=== PATIENT | female | born 1940 | race Hispanic/Latino ===

== ENCOUNTER 2020-01-10 11:05 | Emergency (ER) | payer MEDICARE ==
[~2020-01-10] VITALS: Ht 154.9 cm; Wt 82.6 kg
--- NOTE | 2020-01-10 11:57 | Emergency Department Note ---
History of Present Illnes History of Present Illness Chief Complaint: Extremity Trauma/Pain History of Present Illness This is a 79 year old female arrives to the ED with complaints of right hip pain denies any injuries or falls states pain is worse when attempting to ambulate. . Chief Complaint Comment Patient in from home with complaints of right hip/pelvis pain that started this morning about 0500 when walking out of her rest room. Patient denies falling, twisting or obvious trauma. Patient states that when sitting she doesn't have any pain at all but if she tries to walk or stand the pain gets severe. No acute distress noted. Historian: Patient Arrival Mode: Car Timing of current episode: intermittent Progression: unchanged Chronicity: new Context: Denies trauma/injury Relieving factors: immobilization Exacerbating factors: movement Associated symptoms: Reports denies other symptoms Past Medical/Family History Physician Review I have reviewed the patient's past medical and family history. Any updates have been documented here. Past Medical History Recent Fever: No Clinical Suspicion of Infectio: No New/Unexplained Change in Ment: No Past Medical History: Hypertension, Diabetes, Hyperlipedemia Other Medical History: neuropathy Past Surgical History: Hysterectomy, Cataract Removal Review of Systems Review of Systems Constitutional: Reports no symptoms EENTM: Reports no symptoms Cardiovascular: Reports no symptoms Respiratory: Reports no symptoms Gastrointestinal: Reports no symptoms Genitourinary: Reports no symptoms Musculoskeletal: Reports as per HPI, Reports back pain Integumentary: Reports no symptoms Neurological: Reports no symptoms Psychological: Reports no symptoms Endocrine: Reports no symptoms Hematological/Lymphatic: Reports no symptoms Physical Exam Related Data Allergies: Coded Allergies: No Known Allergies (Unverified , 09/18/10) Triage Vital Signs Vital Signs Date Time Temp Pulse Resp B/P (MAP) Pulse Ox O2 Delivery O2 Flow Rate FiO2 01/10/20 11:27 97.6 66 17 145/82 100 Room Air Vital signs reviewed: Yes Physical Exam CONSTITUTIONAL Constitutional: Present well-developed, Present well-nourished HENT HENT: Present normocephalic, Present atraumatic, Present oropharynx clear/ moist, Present nose normal HENT L/R: Present left ext ear normal, Present right ext ear normal EYES Eyes: Reports PERRL, Reports conjunctivae normal NECK Neck: Present ROM normal PULMONARY Pulmonary: Present effort normal, Present breath sounds normal CARDIOVASCULAR Cardiovascular: Present regular rhythm, Present heart sounds normal, Present capillary refill normal, Present normal rate GASTROINTESTINAL Abdominal: Present soft, Present other (tenderness noted over right inguinal area, no palpable hernias present) GENITOURINARY Genitourinary: Present exam deferred SKIN Skin: Present warm, Present dry MUSCULOSKELETAL Musculoskeletal: Present ROM normal NEUROLOGICAL Neurological: Present alert, Present oriented x 3, Present no gross motor or sensory deficits PSYCHOLOGICAL Psychological: Present mood/affect normal, Present judgement normal Results Laboratory Lab results reviewed: Yes Assessment & Plan Medical Decision Making MDM 79-year-old well-appearing female arrives the ED with atraumatic right hip and right lower quadrant abdominal pain. Initial imaging unremarkable, however, time of discharge patient then began to complain of worsening pain. Patient's tenderness was predominantly noted over right inguinal area on his concerns of possible hernia but limited exam secondary to body habitus. Lab work and CT imaging ordered and Cat given to Dr. Wong to follow-up and ultimately dispo patient. Assessment & Plan Final Impression: (1) Abdominal pain Last Vital Signs Date Time Temp Pulse Resp B/P (MAP) Pulse Ox O2 Delivery O2 Flow Rate FiO2 01/10/20 11:27 97.6 66 17 145/82 100 Room Air Home Meds Active Scripts Tramadol Hcl (ULTRAM) 50 Mg Tablet, 50 MG PO Q6HR PRN for Mild Pain (1-3) or Fever>100.8, #12 TAB Prov:CANDI PHILLIPS DO 01/10/20 CANDI PHILLIPS DO Jan 10, 2020 11:56
--- NOTE | 2020-01-10 12:37 | Diagnostic Imaging Report ---
Bilateral hips, 2 views. History: Acute onset right hip pain. Findings: The soft tissues are normal. Bone mineralization is normal. There is no evidence of fracture or dislocation. There are no lytic or sclerotic lesions. The joint spaces are within normal limits. IMPRESSION: Normal bilateral hips. Signed by: Layo Steele on 01/10/2020 12:34 PM
[2020-01-10] MEDS ORDERED: ULTRAM50 MG PO (15:32)
[2020-01-10 15:49] VITALS: BP 135/72
[2020-01-10] MEDS ORDERED: DIAZEPAM 5 MG TAB PO SCH (16:00)
[2020-01-10] MEDS ORDERED: HYDROCODONE/APAP 10MG-325MG TAB PO ONE (16:00)
[2020-01-10] MEDS ORDERED: ONDANSETRON HCL INJ 2MG/ML 2ML 2 MG/ML VIAL IV STA (16:09)
[2020-01-10] MEDS ORDERED: MORPHINE SULFATE INJ 4 MG/ML INJ 1ML IV PRN (16:15)
[2020-01-10 16:47] LABS: BASOPHILS % 0.3 % (0.0-1.0); EOSINOPHILS # (AUTO) 0.1 (0.0-0.4); EOSINOPHILS % 0.8 % (0.0-6.0); HEMATOCRIT 38.7 % (34.2-44.1); HEMOGLOBIN 12.3 g/dL (12.0-16.0); LYMPHOCYTES # (AUTO) 1.3 (1.0-3.2); LYMPHOCYTES % 16.7 % (18.0-39.1); MEAN CORPUSCULAR HEMOGLOBIN 28.2 pg (28-32); MEAN CORPUSCULAR HGB CONC 31.8 g/dL (31-35); MEAN CORPUSCULAR VOLUME 88.8 fL (81-99); MONOCYTES # (AUTO) 0.5 (0.2-0.8); MONOCYTES % 6.3 % (4.4-11.3); NEUTROPHILS # (AUTO) 5.8 (2.1-6.9); NEUTROPHILS % 75.6 % (38.7-80.0); PLATELET COUNT 267 x10e3/uL (140-360); RED BLOOD COUNT 4.36 x10e6/uL (3.6-5.1); RED CELL DISTRIBUTION WIDTH 13.7 % (11.7-14.4)
[2020-01-10 17:03] LABS: ALBUMIN 4.1 g/dL (3.5-5.0); ANION GAP 16.3 mmol/L (8-16); CALCIUM 10.2 mg/dL (8.4-10.2); CREATININE, SERUM 1.16 mg/dL (0.57-1.11); POTASSIUM 4.3 mmol/L (3.5-5.1)
[2020-01-10] MEDS ORDERED: SODIUM CHLORIDE 0.9% 1000ML 1,000 ML IV SCH (17:15)
[2020-01-10] MEDS ORDERED: SODIUM CHLORIDE 0.9% 1000ML 1,000 ML ONE (17:22)
[2020-01-10] MEDS ORDERED: IOPAMIDOL 370 MG/ML 200 ML INFUS..BTL INJ ONE (17:48)
[2020-01-10] MEDS ORDERED: SODIUM CHLORIDE 0.9% 50ML 50 ML ONE (17:48)
--- NOTE | 2020-01-10 18:18 | Diagnostic Imaging Report ---
EXAM: CT Abdomen and Pelvis WITH contrast INDICATION: Abdominal pain. Pain in the right hip and pelvis. COMPARISON: None. TECHNIQUE: Abdomen and pelvis were scanned utilizing a multidetector helical scanner from the lung base to the pubic symphysis after administration of IV contrast. Coronal and sagittal reformations were obtained. Routine protocol was performed. Scan was performed when during portal venous phase. IV CONTRAST: 100 mL of Isovue 370 ORAL CONTRAST: None COMPLICATIONS: None RADIATION DOSE: Total DLP: 755 mGy*cm Estimated effective dose: (DLP x 0.015 x size factor) mSv CTDIvol has been reviewed. It is below the limits set by the Radiation Protocol Committee (RPC). Dose modulation, iterative reconstruction, and/or weight based adjustment of the mA/kV was utilized to reduce the radiation dose to as low as reasonably achievable. FINDINGS: LINES and TUBES: None. LOWER THORAX: Unremarkable HEPATOBILIARY: No focal hepatic lesions. No biliary ductal dilation. GALLBLADDER: No radio-opaque stones or sludge. No wall thickening. SPLEEN: No splenomegaly. PANCREAS: No focal masses or ductal dilatation. ADRENALS: No adrenal nodules KIDNEYS/URETERS: Kidneys enhance symmetrically. No hydronephrosis. Too small to characterize hypodensities in the kidneys most likely due to small cysts. No stones. GI TRACT: No abnormal distention, wall thickening, or evidence of bowel obstruction. Appendix is normal. Scattered diverticulosis without evidence of diverticulitis. PELVIC ORGANS/BLADDER: Unremarkable. LYMPH NODES: No lymphadenopathy. VESSELS: Scattered vascular calcification. PERITONEUM / RETROPERITONEUM: No free air or fluid. BONES: Scattered degenerative change. SOFT TISSUES: Small fat-containing periumbilical hernia. IMPRESSION: 1. Scattered diverticulosis without evidence of diverticulitis. 2. Small fat-containing periumbilical hernia. Signed by: Dr. Ravin Bryan M.D. on 01/10/2020 6:15 PM
--- NOTE | 2020-01-10 19:00 | NUR ---
report given to Fernando Fraser RN
== END 2020-01-10 19:52 | disposition home or self-care (01) ==
LOC: ER 12:17
DX: M25.551 Pain in right hip (principal); R10.31 Right lower quadrant pain; I10 Essential (primary) hypertension; E11.65 Type 2 diabetes mellitus with hyperglycemia; E78.5 Hyperlipidemia, unspecified
CPT/HCPCS: 36415; 73522; 74177; 80053; 85025; 99284; J7030; Q9967

== ENCOUNTER 2021-06-02 11:16 | Emergency (ER) | payer MEDICARE, OTHER ==
[~2021-06-02] VITALS: Ht 154.9 cm; Wt 82.6 kg
[~2021-06-02 11:16] MED LIST: ULTRAM50 MG PO
[2021-06-02] MEDS ORDERED: LIDOCAINE1 EAC1 TD (13:51)
== END 2021-06-02 14:07 | disposition home or self-care (01) ==
LOC: ER 12:38
DX: R51.9 Headache, unspecified (principal); M54.2 Cervicalgia; W01.0XXA Fall on same level from slipping, tripping and stumbling without subsequent striking against object, initial encounter; Y93.01 Activity, walking, marching and hiking; Y92.89 Other specified places as the place of occurrence of the external cause; I10 Essential (primary) hypertension; E11.40 Type 2 diabetes mellitus with diabetic neuropathy, unspecified; E78.5 Hyperlipidemia, unspecified
CPT/HCPCS: 70450; 72125; 99284

== ENCOUNTER 2022-09-13 11:56 | Inpatient (IN) | payer MEDICARE ==
[~2022-09-13] VITALS: Ht 154.9 cm; Wt 93.0 kg
[~2022-09-13 11:56] MED LIST changes: +LIDOCAINE1 EAC1 TD
[2022-09-13 12:59] LABS: BASOPHILS % 0.3 % (0.0-1.0); EOSINOPHILS % 0.4 % (0.0-6.0); HEMOGLOBIN 12.1 g/dL (12.0-16.0); LYMPHOCYTES # (AUTO) 1.5 (1.0-3.2); LYMPHOCYTES % 20.7 % (18.0-39.1); MEAN CORPUSCULAR HEMOGLOBIN 27.2 pg (28-32); MEAN CORPUSCULAR VOLUME 87.6 fL (81-99); MONOCYTES # (AUTO) 0.6 (0.2-0.8); MONOCYTES % 7.9 % (4.4-11.3); NEUTROPHILS # (AUTO) 5.1 (2.1-6.9); NEUTROPHILS % 70.6 % (38.7-80.0); PLATELET COUNT 296 x10e3/uL (140-360); RED BLOOD COUNT 4.45 x10e6/uL (3.6-5.1); RED CELL DISTRIBUTION WIDTH 13.1 % (11.7-14.4)
[2022-09-13 13:10] LABS: ALANINE AMINOTRANSFERASE 11 IU/L (0-55); ALKALINE PHOSPHATASE 87 IU/L (40-150); ANION GAP 11.9 mmol/L (8-16); BLOOD UREA NITROGEN 27 mg/dL (7-26); BUN/CREATININE RATIO 19 (6-25); CALCIUM 9.1 mg/dL (8.4-10.2); CARBON DIOXIDE 30 mmol/L (22-29); CHLORIDE 96 mmol/L (98-107); GLUCOSE 295 mg/dL (74-118); POTASSIUM 4.9 mmol/L (3.5-5.1); SODIUM 133 mmol/L (136-145)
[2022-09-13 14:14] LABS: ALBUMIN 3.7 g/dL (3.5-5.0); ALBUMIN/GLOBULIN RATIO 0.9 (0.8-2.0)
[2022-09-13] MEDS ORDERED: IOPAMIDOL 370 MG/ML 100 ML INFUS..BTL INJ ONE (14:37)
[2022-09-13] MEDS ORDERED: SODIUM CHLORIDE 0.9% 500ML 500 ML ONE (15:13)
[2022-09-13] MEDS ORDERED: SODIUM CHLORIDE 0.9% 500ML 500 ML IV ONE (15:15)
[2022-09-13] MEDS ORDERED: ONDANSETRON HCL INJ 2MG/ML 2ML 2 MG/ML VIAL IV PRN (16:15)
[2022-09-13] MEDS ORDERED: SODIUM CHLORIDE FLUSH 10 ML SYR INJ PRN (16:15)
[2022-09-13 21:00] VITALS: BP 146/80; PULSE 81; RESP 18; TEMP 97.6; O2SAT 95
[2022-09-13] MEDS ORDERED: BIOFLEX TABLET1 EACH PO (21:34)
[2022-09-13] MEDS ORDERED: SIMVASTATIN20 MG PO (21:34)
[2022-09-13] MEDS ORDERED: FUROSEMIDE20 MG PO (21:34)
[2022-09-13] MEDS ORDERED: ASPIRIN81 MG PO (21:34)
[2022-09-13] MEDS ORDERED: METOPROLOL SUC100 MG PO (21:34)
[2022-09-13] MEDS ORDERED: GLIPIZIDE ER10 MG PO (21:34)
[2022-09-13] MEDS ORDERED: LOSARTAN POTAS100 MG PO (21:34)
[2022-09-13 21:39] VITALS: BP 146/80; PULSE 81; RESP 18; TEMP 97.6; O2SAT 95
[2022-09-13 21:54] VITALS: BP 146/80; PULSE 81; RESP 18; TEMP 97.6; O2SAT 95
[2022-09-13] MEDS ORDERED: NOVOLIN R100 UNIT/1 SC ×2 (22:20)
[2022-09-13] MEDS ORDERED: DEXTROSE 50% SYRINGE 50 ML IV PRN (23:15)
[2022-09-13] MEDS: INSULIN REGULAR, HUMAN 100 UNIT/1 ML SQ SCH (23:33)
[2022-09-14] VITALS (8 sets, daily range): BP systolic 120–179; BP diastolic 62–97; PULSE 70–85; RESP 18–20; TEMP 97.5–98.4; O2SAT 94–98
[2022-09-14] MEDS: INSULIN REGULAR, HUMAN 100 UNIT/1 ML SQ SCH ×4 (08:34→21:25)
[2022-09-14] MEDS ORDERED: LOSARTAN POTASSIUM 100 MG TAB PO SCH (09:00)
[2022-09-14 09:06] LABS: BASOPHILS % 0.5 % (0.0-1.0); EOSINOPHILS % 0.7 % (0.0-6.0); HEMATOCRIT 38.8 % (34.2-44.1); HEMOGLOBIN 11.6 g/dL (12.0-16.0); LYMPHOCYTES # (AUTO) 1.4 (1.0-3.2); MEAN CORPUSCULAR HGB CONC 29.9 g/dL (31-35); MEAN CORPUSCULAR VOLUME 90.2 fL (81-99); MONOCYTES # (AUTO) 0.5 (0.2-0.8); MONOCYTES % 8.5 % (4.4-11.3); NEUTROPHILS # (AUTO) 3.9 (2.1-6.9); NEUTROPHILS % 65.8 % (38.7-80.0); PLATELET COUNT 269 x10e3/uL (140-360); RED CELL DISTRIBUTION WIDTH 13.1 % (11.7-14.4)
[2022-09-14 09:28] LABS: ANION GAP 13.4 mmol/L (8-16); CALCIUM 8.7 mg/dL (8.4-10.2); CREATININE, SERUM 1.13 mg/dL (0.57-1.11); POTASSIUM 4.4 mmol/L (3.5-5.1)
[2022-09-14] MEDS ORDERED: METOPROLOL SUCCINATE 50 MG TAB XL PO ONE (09:30)
[2022-09-14] MEDS ORDERED: DEXAMETHASONE SOD PHOS 10 MG/1 ML VIAL IV ONE (09:30)
[2022-09-14] MEDS ORDERED: SPIRONOLACTONE 25 MG TAB PO ONE (10:30)
[2022-09-14] MEDS: LOSARTAN POTASSIUM 25 MG TAB PO SCH (11:38)
[2022-09-14] MEDS: SIMVASTATIN 20 MG TAB PO SCH (11:42)
[2022-09-14] MEDS: ASPIRIN 81 MG CHEW TAB PO SCH (11:42)
[2022-09-14] MEDS: INSULIN GLARGINE 100 UNITS/ML VIAL SQ SCH ×2 (11:53→21:25)
[2022-09-14] MEDS: FUROSEMIDE INJ 10 MG/ML 4 ML VIAL IV SCH (21:16)
[2022-09-15] VITALS (8 sets, daily range): BP systolic 115–141; BP diastolic 55–89; PULSE 63–70; RESP 18–20; TEMP 97.7–98.2; O2SAT 98–100
[2022-09-15] MEDS: INSULIN REGULAR, HUMAN 100 UNIT/1 ML SQ SCH ×4 (07:56→20:47)
[2022-09-15] MEDS: SIMVASTATIN 20 MG TAB PO SCH (08:02)
[2022-09-15] MEDS: LOSARTAN POTASSIUM 25 MG TAB PO SCH (08:02)
[2022-09-15] MEDS: SPIRONOLACTONE 25 MG TAB PO SCH (08:02)
[2022-09-15] MEDS: ASPIRIN 81 MG CHEW TAB PO SCH (08:02)
[2022-09-15] MEDS: FUROSEMIDE INJ 10 MG/ML 4 ML VIAL IV SCH ×2 (08:03→20:43)
[2022-09-15] MEDS: METOPROLOL SUCCINATE 50 MG TAB XL PO SCH (08:04)
[2022-09-15] MEDS: INSULIN GLARGINE 100 UNITS/ML VIAL SQ SCH (20:47)
[2022-09-16] VITALS (16 sets, daily range): BP systolic 101–137; BP diastolic 51–90; PULSE 57–73; RESP 10–22; TEMP 96.7–98; O2SAT 90–100
[2022-09-16] MEDS: INSULIN REGULAR, HUMAN 100 UNIT/1 ML SQ SCH ×4 (07:30→21:41)
[2022-09-16] MEDS: LOSARTAN POTASSIUM 25 MG TAB PO SCH (07:50)
[2022-09-16] MEDS: ASPIRIN 81 MG CHEW TAB PO SCH (07:50)
[2022-09-16] MEDS: SIMVASTATIN 20 MG TAB PO SCH (07:50)
[2022-09-16] MEDS: SPIRONOLACTONE 25 MG TAB PO SCH (07:50)
[2022-09-16] MEDS: METOPROLOL SUCCINATE 50 MG TAB XL PO SCH (07:50)
[2022-09-16] MEDS: FUROSEMIDE INJ 10 MG/ML 4 ML VIAL IV SCH (09:26)
[2022-09-16] MEDS ORDERED: HEPARIN SOD (PORCINE) 1000 UNIT/ML 30ML ONE (09:50)
[2022-09-16] MEDS ORDERED: HEPARIN SOD/SOD CHLORIDE 2,000 ML ONE (09:50)
[2022-09-16] MEDS ORDERED: LIDOCAINE HCL 2% LOCAL 20 ML VIAL ONE (09:50)
[2022-09-16] MEDS ORDERED: IOPAMIDOL 370 MG/ML 100 ML INFUS..BTL INJ ONE (09:51)
[2022-09-16] MEDS ORDERED: SODIUM CHLORIDE 0.9% 1000ML 1,000 ML ONE (09:51)
[2022-09-16] MEDS ORDERED: NITROGLYCERIN/D5W 200 MCG/ML 250 ML ONE (09:51)
[2022-09-16] MEDS ORDERED: MIDAZOLAM HCL 2 MG/2 ML VIAL ONE (10:04)
[2022-09-16] MEDS ORDERED: VERAPAMIL HCL 2.5 MG/ML 2 ML VIAL ONE (10:04)
[2022-09-16] MEDS ORDERED: FENTANYL CITRATE/PF 100MCG/2 ML INJ ONE (10:05)
[2022-09-16] MEDS ORDERED: SODIUM CHLORIDE 0.9% 500ML 500 ML IV ONE (12:30)
[2022-09-16 18:09] LABS: ANION GAP 18.3 mmol/L (8-16); CALCIUM 9.2 mg/dL (8.4-10.2); CREATININE, SERUM 1.64 mg/dL (0.57-1.11); POTASSIUM 4.3 mmol/L (3.5-5.1)
[2022-09-16] MEDS ORDERED: INSULIN REGULAR, HUMAN 100 UNIT/1 ML SQ ONE (18:45)
[2022-09-16] MEDS: INSULIN GLARGINE 100 UNITS/ML VIAL SQ SCH (21:41)
[2022-09-17] VITALS: BP 115/68; PULSE 78; RESP 16; TEMP 97.4; O2SAT 99
[2022-09-17 05:30] LABS: ANION GAP 12.7 mmol/L (8-16); CALCIUM 8.8 mg/dL (8.4-10.2); CREATININE, SERUM 1.17 mg/dL (0.57-1.11); POTASSIUM 3.7 mmol/L (3.5-5.1)
[2022-09-17] MEDS: INSULIN REGULAR, HUMAN 100 UNIT/1 ML SQ SCH ×2 (07:30→12:26)
[2022-09-17 07:42] VITALS: BP 138/71; PULSE 73; RESP 18; TEMP 97.7; O2SAT 95
[2022-09-17 08:20] VITALS: BP 138/71; PULSE 73; RESP 18; TEMP 97.7; O2SAT 95
[2022-09-17] MEDS ORDERED: FUROSEMIDE 40 MG TAB PO SCH (09:00)
[2022-09-17] MEDS: SIMVASTATIN 20 MG TAB PO SCH (09:03)
[2022-09-17] MEDS: LOSARTAN POTASSIUM 25 MG TAB PO SCH (09:03)
[2022-09-17] MEDS: ASPIRIN 81 MG CHEW TAB PO SCH (09:03)
[2022-09-17] MEDS: METOPROLOL SUCCINATE 50 MG TAB XL PO SCH (09:04)
[2022-09-17] MEDS: SPIRONOLACTONE 25 MG TAB PO SCH (09:04)
[2022-09-17 12:05] VITALS: BP 131/62; PULSE 70; RESP 18; TEMP 97.4; O2SAT 97
[2022-09-17] MEDS ORDERED: ONDANSETRON HCL 4 MG ORAL DISINTEGRATING TAB PO PRN (13:15)
[2022-09-17 15:22] VITALS: BP 111/59; PULSE 70; RESP 17; TEMP 97.9; O2SAT 95
[2022-09-18] MEDS ORDERED: LOSARTAN POTASSIUM 25 MG TAB PO SCH (09:00)
== END 2022-09-17 16:09 | disposition home or self-care (01) | DRG 286 ==
LOC: ER 12:06 → ERHOLD 16:16 → MED/SURG2 20:36
PROVIDERS: ADMIT Internal Medicine; ATTEND Internal Medicine
PROC: 4A023N7 Measurement of Cardiac Sampling and Pressure, Left Heart, Percutaneous Approach (ICD-10-PCS; principal; 2022-09-16)
PROC: B2111ZZ Fluoroscopy of Multiple Coronary Arteries using Low Osmolar Contrast (ICD-10-PCS; 2022-09-16)
DX: I13.0 Hypertensive heart and chronic kidney disease with heart failure and stage 1 through stage 4 chronic kidney disease, or unspecified chronic kidney disease (principal); I50.23 Acute on chronic systolic (congestive) heart failure; N17.9 Acute kidney failure, unspecified; N18.30 Chronic kidney disease, stage 3 unspecified; E11.22 Type 2 diabetes mellitus with diabetic chronic kidney disease; E78.2 Mixed hyperlipidemia; E66.9 Obesity, unspecified; Z68.38 Body mass index [BMI] 38.0-38.9, adult; E11.65 Type 2 diabetes mellitus with hyperglycemia; I42.8 Other cardiomyopathies; Z79.4 Long term (current) use of insulin; Z79.899 Other long term (current) drug therapy
CPT/HCPCS: 36415; 71045; 71260; 80048; 80053; 82550; 82948; 83605; 83735; 83880; 84484; 85025; 85379; 87040; 87400; 93005; 93306; 93458; 96372; 99152; 99153; 99284; C1887; J1100; J1644; J1815; J1940; J2001; J2250; J7030; J7040; Q9967